=== PATIENT | male | born 1985 | race Caucasian/White ===

== ENCOUNTER → 2017-01-26 | Outpatient (CLI) | payer BC ==
--- NOTE | 2017-01-26 17:25 | DI ---
Indication: ITS.REASON: N45.2 TESTICULAR MASS PROCEDURE: US TESTICULAR: Encounter: Initial Comparison: None FINDINGS: Both testicles are present in expected location. The testicles demonstrate a homogenous echotexture without intratesticular mass. The right testicle measures 4.5 x 2.5 x 3.1 cm, and the left testicle measures 4.4 x 2.4 x 3 cm. Color Doppler imaging demonstrates symmetric, arterial flow throughout both testicles. Normal pulsed Doppler arterial and venous waveforms were obtained from each testicle. Both epididymides are normal without focal mass or hyperemia. Small bilateral varicoceles. IMPRESSION: Small varicoceles. Normal appearance of the testicles. .
== END ==
LOC: IMA 16:08
PROVIDERS: ATTEND Family Medicine
DX: I86.1 Scrotal varices (principal); N50.89 Other specified disorders of the male genital organs